=== PATIENT | female | born 1960 | race Hispanic/Latino ===

== ENCOUNTER 2022-03-30 17:10 | Emergency (ER) | payer OTHER ==
[2022-03-30] MEDS ORDERED: Boostrix 0.5 ML (Tdap) VIAL (>/=7 yrs of age) ONE (18:19)
[2022-03-30] MEDS ORDERED: Acetaminophen 500 MG TAB ONE (19:32)
== END 2022-03-30 19:30 | disposition home or self-care (01) ==
LOC: CSHERS 17:10
DX: S81.012A Laceration without foreign body, left knee, initial encounter (principal); I10 Essential (primary) hypertension; Z23 Encounter for immunization; W19.XXXA Unspecified fall, initial encounter
CPT/HCPCS: 12002; 90471; 90715